=== PATIENT | male | born 1945 | race Caucasian/White ===

== ENCOUNTER → 2017-06-25 | Outpatient (CLI) | payer MEDICARE | END | disposition home or self-care (01) | LOC: SHCH 09:46 | PROVIDERS: ATTEND Internal Medicine Cardiovascular Disease | DX: I25.5 Ischemic cardiomyopathy (principal) | CPT/HCPCS: 93306 ==

== ENCOUNTER 2018-09-15 06:14 | Day surgery (SDC) | payer MEDICARE ==
[2018-09-12 11:30] VITALS: BP 115/58
[2018-09-12 11:42] LABS: BASOPHILS % (AUTO) 0.7 % (0.0-5.0); EOSINOPHILS % (AUTO) 1.9 % (0.0-8.0); HEMATOCRIT 48.9 % (42-54); MEAN CORPUSCULAR HEMOGLOBIN 29.8 pg (27.0-33.0); MEAN CORPUSCULAR HGB CONC 33.7 g/dL (32.0-36.0); MEAN CORPUSCULAR VOLUME 88.3 fL (79-99); MONOCYTES % (AUTO) 6.5 % (3.0-13.0); NEUTROPHILS % (AUTO) 68.9 % (40.0-77.0); NUCLEATED RED BLOOD CELLS 0.1 % (0.0-0.19); PLATELET COUNT (AUTO) 229 K/uL (130-400); RED BLOOD CELL COUNT(AUTO) 5.54 MIL/uL (4.50-6.20); RED CELL DISTRIBUTION WIDTH 13.1 % (11.0-15.5); WHITE BLOOD COUNT (AUTO) 8.3 K/uL (4.8-10.8)
[2018-09-12 11:58] LABS: CREATININE 1.3 mg/dL (0.5-1.5); POTASSIUM 3.9 mmol/L (3.5-5.1)
[2018-09-12 12:03] LABS: INR 1.05 (0.85-1.15); PARTIAL THROMBOPLASTIN TIME 29.4 SEC (26.3-35.5)
--- NOTE | 2018-09-12 16:07 | NUR ---
DR. MAYA NOTIFIED OF ABNORMAL EKG, PT HAS A PACEMAKER, NO NEW ORDERS .
[~2018-09-15] VITALS: Ht 167.6 cm; Wt 96.2 kg
[2018-09-15] VITALS (17 sets, daily range): BP systolic 118–154; BP diastolic 56–97
[~2018-09-15 06:14] MED LIST: AMLO1CAP12 PO; CEPH500T PO; EZET10TA26 PO; ROSU10TA27 PO; UBID10CA6 PO
[2018-09-15] MEDS ORDERED: LACTATED RINGERS 1000ML 1,000 ML IV ONE (06:41)
[2018-09-15] MEDS ORDERED: BACITRACIN 28.4 GM OINT TP ONE (06:41)
[2018-09-15] MEDS ORDERED: EPINEPHRINE 1 MG/ML 30ML VIAL IJ ONE (06:42)
[2018-09-15] MEDS ORDERED: LIDOCAINE HCL/EPINEPHRINE 50 ML VIAL IJ ONE (07:06)
[2018-09-15] MEDS ORDERED: DEXAMETHASONE SOD PHOSPHATE 10MG/ML 1ML VIAL ONE (07:27)
[2018-09-15] MEDS ORDERED: MIDAZOLAM HCL 1 MG/ML 2ML VIAL ONE (07:28)
[2018-09-15] MEDS ORDERED: SUCCINYLCHOLINE 200MG/10ML SYR ONE (07:28)
[2018-09-15] MEDS ORDERED: PROPOFOL 10 MG/ML 20ML VIAL IV ONE (07:28)
[2018-09-15] MEDS ORDERED: GLYCOPYRROLATE 1 MG/5 ML SYRINGE ONE (07:28)
[2018-09-15] MEDS ORDERED: ONDANSETRON HCL 4 MG/2 ML VIAL ONE (07:28)
[2018-09-15] MEDS ORDERED: NEOSTIGMINE 5MG/5ML SYR IV ONE (07:28)
[2018-09-15] MEDS ORDERED: LIDOCAINE PF 2% 5ML ABBOJECT ONE ×3 (07:28→08:50)
[2018-09-15] MEDS ORDERED: ROCURONIUM 10MG/1ML SYR 10 MG/ML ML ONE (07:28)
[2018-09-15] MEDS ORDERED: FENTANYL CITRATE PF 50 MCG/1 ML 2ML VIAL ONE (07:29)
[2018-09-15] MEDS ORDERED: EPHEDRINE SULFATE 50 MG/ML AMPULE ONE (08:00)
[2018-09-15] MEDS ORDERED: OXYMETAZOLINE HCL SPRAY 15 ML BOTTLE ONE (09:05)
== END 2018-09-15 11:00 | disposition home or self-care (01) ==
LOC: DAH 06:14
PROVIDERS: ATTEND Otolaryngology Plastic Surgery within the Head & Neck
DX: J34.2 Deviated nasal septum (principal); J32.9 Chronic sinusitis, unspecified; J34.89 Other specified disorders of nose and nasal sinuses; J34.3 Hypertrophy of nasal turbinates; Z95.0 Presence of cardiac pacemaker; Z98.890 Other specified postprocedural states; Z79.899 Other long term (current) drug therapy; I10 Essential (primary) hypertension; I49.5 Sick sinus syndrome; Z79.01 Long term (current) use of anticoagulants
CPT/HCPCS: 30140; 30520; 31254; 31256; 31267; 36415; 71045; 80048; 85025; 85610; 85730; 88305; 88311; 93005; J0171; J0330; J1100; J2001 ×3; J2250; J2405; J2704; J2710; J3010; J3490 ×2; J7120

== ENCOUNTER 2018-09-16 13:44 | Emergency (ER) | payer MEDICARE | END 2018-09-16 14:40 | disposition home or self-care (01) | LOC: EDH 13:44 | DX: R33.9 Retention of urine, unspecified (principal); I10 Essential (primary) hypertension | CPT/HCPCS: 51702 ==

== ENCOUNTER 2023-02-19 05:35 | Day surgery (SDC) | payer MEDICARE ==
[2023-02-15 08:54] VITALS: BP 124/76; PULSE 74; RESP 16
[2023-02-15 08:56] LABS: BASOPHILS # (AUTO) 0.09 K/uL (0.00-0.20); EOSINOPHILS # (AUTO) 0.29 K/uL (0.00-0.70); EOSINOPHILS % (AUTO) 3.2 % (0.0-8.0); HEMATOCRIT 50.5 % (42-54); IMMATURE GRANULOCYTE ABSOLUTE 0.02 K/uL (0-1); LYMPHOCYTES # (AUTO) 2.3 K/uL (1.0-4.8); LYMPHOCYTES % (AUTO) 24.8 % (21.0-51.0); MEAN CORPUSCULAR HEMOGLOBIN 29.4 pg (27.0-33.0); MEAN CORPUSCULAR HGB CONC 32.9 g/dL (32.0-36.0); MEAN CORPUSCULAR VOLUME 89.4 fL (79-99); MONOCYTES # (AUTO) 0.7 K/uL (0.1-1.0); MONOCYTES % (AUTO) 7.8 % (3.0-13.0); NEUTROPHILS # (AUTO) 5.7 K/uL (1.8-7.7); PLATELET COUNT (AUTO) 271 K/uL (130-400); RED BLOOD CELL COUNT(AUTO) 5.65 MIL/uL (4.50-6.20); RED CELL DISTRIBUTION WIDTH 12.9 % (11.0-15.5); WHITE BLOOD COUNT (AUTO) 9.1 K/uL (4.8-10.8)
[2023-02-15 09:05] LABS: CREATININE 1.1 mg/dL (0.5-1.5); POTASSIUM 4.4 mmol/L (3.5-5.1)
[2023-02-15 09:08] LABS: INR 0.96 (0.85-1.15); PROTHROMBIN TIME 11.2 SEC (9.6-11.6)
[2023-02-15 09:28] LABS: APPEARANCE,URINE CLEAR (CLEAR); BILIRUBIN,URINE NEGATIVE (NEGATIVE); COLOR,URINE YELLOW (YELLOW); GLUCOSE, URINE (UA) NEGATIVE (NEGATIVE); KETONES,URINE NEGATIVE (NEGATIVE); LEUKOCYTE ESTERASE ,URINE NEGATIVE Leu/uL (NEGATIVE); NITRATE,URINE NEGATIVE (NEGATIVE); OCCULT BLOOD,URINE NEGATIVE (NEGATIVE); PROTEIN,URINE NEGATIVE (NEGATIVE); UROBILINOGEN,URINE 0.2 mg/dL (0.2-1.0)
[2023-02-15 09:29] LABS: ADD UA MICROSCOPIC NO
[~2023-02-19] VITALS: Ht 167.6 cm; Wt 94.7 kg
[2023-02-19] VITALS (10 sets, daily range): BP systolic 98–130; BP diastolic 61–83; PULSE 57–81; RESP 12–18
[~2023-02-19 05:35] MED LIST changes: +AEC81 PO; -AMLO1CAP12 PO; +BENA40TA92 PO; -CEPH500T PO; +DUTA0.5C37 PO; -EZET10TA26 PO; +EZET10TA48 PO; +HYDR12.54 PO; +METF-444 PO; -ROSU10TA27 PO; +ROSU20TA73 PO; +TAMS-1 PO; -UBID10CA6 PO
[2023-02-19] MEDS ORDERED: 0.9%NACL 1000ML 1,000 ML IV ONE (06:13)
[2023-02-19] MEDS ORDERED: LIDOCAINE HCL 400MG/20ML VIAL ONE (09:49)
[2023-02-19] MEDS ORDERED: FENTANYL CITRATE PF 50 MCG/1 ML 2ML VIAL ONE (09:49)
[2023-02-19] MEDS ORDERED: NICARDIPINE 25MG INJ IV ONE (09:50)
[2023-02-19] MEDS ORDERED: NITROGLYCERIN 50MG VIAL ONE (09:50)
[2023-02-19] MEDS ORDERED: HEPARIN 10,000 UNIT/10ML (1,000 UNIT/ML) VIAL ONE (09:50)
[2023-02-19] MEDS ORDERED: IOHEXOL 350 MG/ML 100ML INFUS..BTL IV ONE (09:50)
[2023-02-19] MEDS ORDERED: MIDAZOLAM HCL 1 MG/ML 2ML VIAL ONE (09:50)
[2023-02-19] MEDS ORDERED: IOHEXOL-350 50ML VIAL IV ONE (09:53)
[2023-02-19] MEDS ORDERED: ATROPINE 1MG SYG IVP ONE (10:19)
[2023-02-19] MEDS ORDERED: DEXTROSE 50%-WATER 50 ML DISP.SYRIN IV PRN (11:30)
[2023-02-19] MEDS ORDERED: 0.9%NACL 1000ML 1,000 ML IV SCH (11:30)
[2023-02-19] MEDS ORDERED: INSULIN HUMULIN R 100 UNIT/ML 3ML SQ SCH (11:30)
== END 2023-02-19 14:55 | disposition home or self-care (01) ==
LOC: DAH 05:35
PROVIDERS: ATTEND Internal Medicine Cardiovascular Disease
DX: I25.10 Atherosclerotic heart disease of native coronary artery without angina pectoris (principal); I44.2 Atrioventricular block, complete; I11.0 Hypertensive heart disease with heart failure; I50.22 Chronic systolic (congestive) heart failure; E78.2 Mixed hyperlipidemia; E66.9 Obesity, unspecified; I25.2 Old myocardial infarction; Z95.5 Presence of coronary angioplasty implant and graft; Z79.82 Long term (current) use of aspirin; Z79.899 Other long term (current) drug therapy; Z98.890 Other specified postprocedural states; Z68.34 Body mass index [BMI] 34.0-34.9, adult; Z79.01 Long term (current) use of anticoagulants
CPT/HCPCS: 80048; 83880; 85025; 85610; 85730; 81003; 36415; 71045; 93005; 93458; 82948 ×2; C1894 ×3; C1760; J3010; J3490 ×3; J7030; J1644 ×2; J2250; Q9967; A4215; A4222; A4221; A4663; A4216; A4606; Q9965; A4223 ×3; 96360; 96361; 99156; 99157; J0461

== ENCOUNTER → 2023-09-03 | Outpatient (CLI) | payer MEDICARE ==
[2023-09-03 10:56] LABS: BASOPHILS # (AUTO) 0.08 K/uL (0.00-0.20); EOSINOPHILS # (AUTO) 0.25 K/uL (0.00-0.70); EOSINOPHILS % (AUTO) 3.1 % (0.0-8.0); HEMATOCRIT 48.6 % (42-54); IMMATURE GRANULOCYTE ABSOLUTE 0.02 K/uL (0-1); LYMPHOCYTES % (AUTO) 25.7 % (21.0-51.0); MEAN CORPUSCULAR HEMOGLOBIN 29.6 pg (27.0-33.0); MEAN CORPUSCULAR HGB CONC 32.9 g/dL (32.0-36.0); MONOCYTES # (AUTO) 0.6 K/uL (0.1-1.0); MONOCYTES % (AUTO) 7.4 % (3.0-13.0); NEUTROPHILS % (AUTO) 62.5 % (40.0-77.0); PLATELET COUNT (AUTO) 273 K/uL (130-400); RED CELL DISTRIBUTION WIDTH 12.5 % (11.0-15.5); WHITE BLOOD COUNT (AUTO) 7.9 K/uL (4.8-10.8)
[2023-09-03 11:04] LABS: HEMOGLOBIN A1C 6.3 % (4.0-6.0)
[2023-09-03 11:15] LABS: ALBUMIN 3.9 g/dL (3.5-5.0); BILIRUBIN,TOTAL 0.5 mg/dL (0.2-1.0); CREATININE 1.1 mg/dL (0.5-1.3)
== END | disposition home or self-care (01) ==
LOC: LAB 09:24
PROVIDERS: ATTEND Nurse Practitioner Acute Care
DX: E11.9 Type 2 diabetes mellitus without complications (principal); I25.10 Atherosclerotic heart disease of native coronary artery without angina pectoris; E78.5 Hyperlipidemia, unspecified; N40.0 Benign prostatic hyperplasia without lower urinary tract symptoms; Z95.0 Presence of cardiac pacemaker
CPT/HCPCS: 36415; 80053; 80061; 83036; 84153; 85025